=== PATIENT | male | born 1980 | race Caucasian/White ===

== ENCOUNTER 2017-02-11 02:02 | Emergency (ER) | payer OTHER ==
--- NOTE | 2017-02-11 03:08 | ED ---
Psych HPI - General Source: patient, family, RN notes reviewed Mode of arrival: ambulatory <Kenyatta Hughes - Last Filed: 02/11/17 04:26> <Samuel Osorio - Last Filed: 02/11/17 12:03> <Lance Bui - Last Filed: 02/12/17 11:18> - General Chief Complaint: Psychiatric Symptoms Stated Complaint: Mental Health Time Seen by Provider: 02/11/17 02:19 - History of Present Illness Initial Comments: Patient is a 36-year-old male chief complaint of suicidal ideation. Patient reports that he plans to overdose in order to kill himself. Patient reports he' s had multiple suicide attempts in the past history of drug and alcohol abuse states he has been clean for the past 3 years. He does report to using occasional marijuana. Patient states that he feels as if he has nothing to live for. Patient reports he is also been having a poor relationship with his daughter, and that she has recently tried to overdose. She is currently 13 years old. Patient reports that he's had severe issues with the management after his father when he is only 36. Reports is currently not taking any medications, patient states he doesn't believe in psychiatric medications. Denies any homicidal ideation. Patient denies any recent fever, chills, shortness of breath, chest pain, back pain, abdominal pain, nausea vomiting, numbness or tingling, dysuria or hematuria, constipation or diarrhea, headaches or visual changes, or any other current symptoms (Kenyatta Hughes) - Related Data Home Medications Medication Instructions Recorded Confirmed HYDROcodone/APAP 5-325MG [Hoagland 1 tab PO Q6H PRN 09/16/16 02/11/17 5-325] Lisinopril 40 mg PO DAILY 09/16/16 02/11/17 Simvastatin [Zocor] 40 mg PO HS 02/11/17 02/11/17 Allergies Allergy/AdvReac Type Severity Reaction Status Date / Time No Known Allergies Allergy Verified 02/11/17 09:23 Review of Systems ROS Other: All systems not noted in ROS Statement are negative. <Kenyatta Hughes - Last Filed: 02/11/17 04:26> ROS Other: All systems not noted in ROS Statement are negative. <Samuel Osorio - Last Filed: 02/11/17 12:03> ROS Other: All systems not noted in ROS Statement are negative. <Lance Bui - Last Filed: 02/12/17 11:18> ROS Statement: Those systems with pertinent positive or pertinent negative responses have been documented in the HPI. Past Medical History Past Medical History: Hyperlipidemia, Hypertension Additional Past Medical History / Comment(s): hiatel hernia, rosacea {pts dad had first [place] at 30, at 39 from [place] had a triple bypass before passing.pts brother had a [place] at 29} back pain History of Any Multi-Drug Resistant Organisms: None Reported Past Surgical History: Hernia Repair Past Anesthesia/Blood Transfusion Reactions: No Reported Reaction Past Psychological History: Anxiety, Depression Smoking Status: Former smoker Past Alcohol Use History: Occasional Past Drug Use History: Marijuana - Past Family History Father History Unknown: Yes Family Medical History: Coronary Artery Disease (CAD), Myocardial Infarction ([place] ) Additional Family Medical History / Comment(s): first [place] at 29, at 39 from [place] { hx of triple bypass } Brother(s) History Unknown: Yes Family Medical History: Myocardial Infarction ([place]) Additional Family Medical History / Comment(s): [place] at age 29 <Kenyatta Hughes - Last Filed: 02/11/17 04:26> General Exam Limitations: no limitations General appearance: alert, in no apparent distress Head exam: Present: atraumatic, normocephalic, normal inspection Eye exam: Present: normal appearance, PERRL, EOMI. Absent: scleral icterus, conjunctival injection, periorbital swelling ENT exam: Present: normal exam, mucous membranes moist Neck exam: Present: normal inspection. Absent: tenderness, meningismus, lymphadenopathy Respiratory exam: Present: normal lung sounds bilaterally. Absent: respiratory distress, wheezes, rales, rhonchi, stridor Cardiovascular Exam: Present: regular rate, normal rhythm, normal heart sounds. Absent: systolic murmur, diastolic murmur, rubs, gallop, clicks GI/Abdominal exam: Present: soft, normal bowel sounds. Absent: distended, tenderness, guarding, rebound, rigid Extremities exam: Present: normal inspection, full ROM, normal capillary refill. Absent: tenderness, pedal edema, joint swelling, calf tenderness Back exam: Present: normal inspection Neurological exam: Present: alert, oriented X3, CN II-XII intact Psychiatric exam: Present: depressed, suicidal ideation (Patient reports that he is suicidal thoughts and wants to overdose in order to kill himself.). Absent: normal affect, normal mood Skin exam: Present: warm, dry, intact, normal color. Absent: rash <Kenyatta Hughes - Last Filed: 02/11/17 04:26> <Samuel Osorio - Last Filed: 02/11/17 12:03> <Lance Bui - Last Filed: 02/12/17 11:18> - General Exam Comments Initial Comments: 36-year-old male. No acute distress. Patient does appear to be anxious and distraught. (Kenyatta Hughes) Course <Kenyatta Hughes - Last Filed: 02/11/17 04:26> <Samuel Osorio - Last Filed: 02/11/17 12:03> <Lance Bui - Last Filed: 02/12/17 11:18> Vital Signs 02/11/17 02/11/17 02/11/17 02:10 09:54 16:00 Temperature 97.6 F 97.8 F 97.9 F Pulse Rate 78 69 72 Respiratory 18 16 20 Rate Blood Pressure 136/91 126/85 128/56 O2 Sat by Pulse 96 97 99 Oximetry 02/11/17 02/12/17 20:44 09:00 Temperature Pulse Rate 100 80 Respiratory 16 16 Rate Blood Pressure 145/88 119/75 O2 Sat by Pulse 96 97 Oximetry - Reevaluation(s) Reevaluation #1: 02/11/17 12:03 Patient rested comfortable be throughout the night and was pending disposition. He is feeling somewhat anxious L be given appropriate medication. (Samuel Osorio) Medical Decision Making <Kenyatta Hughes - Last Filed: 02/11/17 04:26> <Samuel Osorio - Last Filed: 02/11/17 12:03> - Lab Data Result diagrams: 02/11/17 12:05 02/11/17 12:05 <Lance Bui - Last Filed: 02/12/17 11:18> - Medical Decision Making Patient 36-year-old male chief complaint suicidal ideation. Patient plans to overdose. He has a history of drug or alcohol use. He reports that he hasn't been taking other drugs. He does take pain medication occasionally on his lower back hurting. Patient reports that his history of sciatica and is actually having an MRI scheduled tomorrow. Patient is medically cleared at this time for EPS evaluation. EPS stated that he would not agree to safety contract. He continues states he has suicidal ideations. Patient will be petitioned at this time by psychiatric services. Is likely the patient may need to be transferred to another facility as our facility is currently full. Patient will be spending the night emergency room. Stating that he has some lower back pain. Patient will be given one Hoagland for his back pain, also previous request patient is severely anxious and having anxiety attack after the interview. Patient was also given 1 mg of Ativan. Patient's family is now seeing him. (Kenyatta Hughes) Patient was seen by mental health and then seen again this morning, 02/12. They did set up outpatient follow-up and to recommend discharge. Patient was reevaluated by myself, Dr. Bui. Patient has no clinical certificate on the chart. Patient denies suicidal ideation. Patient does contract for safety. Patient believes his problems are related to his anxiety and states he will also follow-up with his primary care physician regarding this. (Lance Bui) - Lab Data Lab Results 02/11/17 02/11/17 02/11/17 Range/Units 02:20 12:05 12:05 WBC 11.3 H (3.8-10.6) k/uL RBC 5.18 (4.30-5.90) m/uL Hgb 15.7 (13.0-17.5) gm/dL Hct 45.8 (39.0-53.0) % MCV 88.4 (80.0-100.0) fL MCH 30.4 (25.0-35.0) pg MCHC 34.4 (31.0-37.0) g/dL RDW 12.7 (11.5-15.5) % Plt Count 324 (150-450) k/uL Neutrophils % 74 % Lymphocytes % 18 % Monocytes % 5 % Eosinophils % 1 % Basophils % 1 % Neutrophils # 8.4 H (1.3-7.7) k/uL Lymphocytes # 2.0 (1.0-4.8) k/uL Monocytes # 0.5 (0-1.0) k/uL Eosinophils # 0.2 (0-0.7) k/uL Basophils # 0.1 (0-0.2) k/uL Sodium 143 (137-145) mmol/L Potassium 3.7 (3.5-5.1) mmol/L Chloride 106 (98-107) mmol/L Carbon Dioxide 23 (22-30) mmol/L Anion Gap 14 mmol/L BUN 10 (9-20) mg/dL Creatinine 0.63 L (0.66-1.25) mg/dL Est GFR (MDRD) Af Amer >60 (>60 ml/min/1.73 sqM) Est GFR (MDRD) Non-Af >60 (>60 ml/min/1.73 sqM) Glucose 100 H (74-99) mg/dL Calcium 9.5 (8.4-10.2) mg/dL Total Bilirubin 1.0 (0.2-1.3) mg/dL AST 21 (17-59) U/L ALT 34 (21-72) U/L Alkaline Phosphatase 58 (38-126) U/L Total Protein 7.8 (6.3-8.2) g/dL Albumin 4.7 (3.5-5.0) g/dL Urine Opiates Screen Not Detected (NotDetected) Ur Oxycodone Screen Not Detected (NotDetected) Urine Methadone Screen Not Detected (NotDetected) Ur Propoxyphene Screen Not Detected (NotDetected) Ur Barbiturates Screen Not Detected (NotDetected) U Tricyclic Antidepress Not Detected (NotDetected) Ur Phencyclidine Scrn Not Detected (NotDetected) Ur Amphetamines Screen Not Detected (NotDetected) U Methamphetamines Scrn Not Detected (NotDetected) U Benzodiazepines Scrn Not Detected (NotDetected) Urine Cocaine Screen Not Detected (NotDetected) U Marijuana (THC) Screen Detected H (NotDetected) Disposition Time of Disposition: 04:30 <Kenyatta Hughes - Last Filed: 02/11/17 04:26> <Samuel Osorio - Last Filed: 02/11/17 12:03> <Lance Bui - Last Filed: 02/12/17 11:18> Clinical Impression: Suicidal ideation, Depression Disposition: HOME SELF-CARE Condition: Stable Instructions: Depression (ED), Suicide Prevention for Adults (ED) Additional Instructions: Please follow-up with your primary care physician in the next day or 2 for recheck. Please follow up with [facility] in the next day or 2 for recheck and further care. Return for thoughts of harming yourself, worsening symptoms or any other concerns. Referrals: Kirk Obrien MD [Primary Care Provider] - 1-2 days
[2017-02-11] MEDS: LORazepam 1 MG TAB PO STA ×2 (03:49→09:43)
[2017-02-11] MEDS: HYDROcodone/APAP 5-325MG 1 EACH TAB PO STA ×2 (04:04→10:32)
[2017-02-11] MEDS ORDERED: LORazepam 1 MG TAB PO STA (11:52)
[2017-02-11 12:16] LABS: Basophils # (A) 0.1 k/uL (0-0.2); Basophils % (A) 1 %; CHCM 35.2; Eosinophils # (A) 0.2 k/uL (0-0.7); Eosinophils % (A) 1 %; HCT 45.8 % (39.0-53.0); HDW 2.31; HGB 15.7 gm/dL (13.0-17.5); Luc # (Auto) 0.17; Luc % (Auto) 2; Lymphocytes % (A) 18 %; MCH 30.4 pg (25.0-35.0); MCHC 34.4 g/dL (31.0-37.0); MCV 88.4 fL (80.0-100.0); Mean Platelet Volume 6.4; Monocytes # (A) 0.5 k/uL (0-1.0); Monocytes % (A) 5 %; Neutrophils # (A) 8.4 k/uL (1.3-7.7); Neutrophils % (A) 74 %; RBC 5.18 m/uL (4.30-5.90); RDW 12.7 % (11.5-15.5); WBC 11.3 k/uL (3.8-10.6); WBC (Perox) 11.84
[2017-02-11 12:26] LABS: ALT 34 U/L (21-72); AST 21 U/L (17-59); Alkaline Phosphatase 58 U/L (38-126); Anion Gap 14 mmol/L; Blood Urea Nitrogen 10 mg/dL (9-20); Calcium 9.5 mg/dL (8.4-10.2); Carbon Dioxide 23 mmol/L (22-30); Chloride 106 mmol/L (98-107); Glucose 100 mg/dL (74-99); Non-African American GFR(MDRD) >60 (>60 ml/min/1.73 sqM); Potassium 3.7 mmol/L (3.5-5.1); Sodium 143 mmol/L (137-145); Total Protein 7.8 g/dL (6.3-8.2)
[2017-02-11] MEDS ORDERED: HYDROcodone/APAP 5-325MG 1 EACH TAB PO STA (18:24)
[2017-02-11 20:45] VITALS: RESP 16
[2017-02-12] MEDS ORDERED: LORazepam 1 MG TAB PO STA (00:56)
[2017-02-12] MEDS ORDERED: HYDROcodone/APAP 5-325MG 1 EACH TAB PO STA ×2 (00:56→09:33)
[2017-02-12] MEDS ORDERED: HYDROcodone/APAP 5-325MG 1 EACH TAB PO PRN (09:32)
[2017-02-12 11:28] VITALS: BP 131/77; PULSE 74; TEMP 98.2
== END 2017-02-12 11:28 | disposition home or self-care (01) ==
LOC: EC 02:02
DX: F32.9 Major depressive disorder, single episode, unspecified (principal); R45.851 Suicidal ideations; I10 Essential (primary) hypertension; F41.9 Anxiety disorder, unspecified; Z87.891 Personal history of nicotine dependence; Z79.899 Other long term (current) drug therapy
CPT/HCPCS: 36415; 80053; 80306; 82075; 85025; 99284

== ENCOUNTER → 2017-02-12 | Outpatient (CLI) | payer OTHER ==
--- NOTE | 2017-02-12 21:44 | MR ---
EXAMINATION TYPE: MR lumbar spine wo con DATE OF EXAM: 02/12/2017 5:17 PM COMPARISON: NONE HISTORY: 36-year-old male with low back pain, right lower extremity radiculopathy x 7 years, no surge ry TECHNIQUE: Multiplanar, multisequence images of the lumbar spine were acquired. FINDINGS: Vertebral body heights are preserved. There are trace grade 1 retrolistheses at L3-L4 and L4-L5. 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 There is prominent red marrow without amrik bone marrow replacement. Findings could be secondary to a nemia, obesity, smoking, or chronic disease. Clinically correlate. Conus medullaris is normal. Moderate degenerative disc disease with moderate disc height loss particularly in the mid to lower narendra mbar spine with diffuse disc bulges. Additional ligamentum flavum thickening and facet degenerative change. At T12-L1, no spinal canal and neuroforaminal stenosis. At L1-L2, no spinal canal or neuroforaminal stenosis. At L2-L3, no spinal canal or neuroforaminal stenosis. At L3-L4, there is mild diffuse disc bulge and mild facet degenerative change. There is minimal infer ior neural foraminal narrowing on the right and mild left-sided neuroforaminal stenosis. At L4-L5, there is diffuse disc bulge with ligamentum flavum thickening and facet arthropathy. In add ition, there is a right paracentral disc extrusion with inferior migration of disc material and likel y a 1.7 cm craniocaudal by 0.8 cm wide edematous, sequestered disc fragment along the right paramedia n posterior aspect of the L5 vertebral body. This likely impinges the traversing right L5 nerve root. Mild attenuation of the thecal sac without significant spinal canal stenosis. There is mild right gr eater than left neuroforaminal stenosis. At L5-S1, there is bulging disc and facet degenerative change. Changes result in moderate right neuro foraminal stenosis without spinal canal stenosis. No prevertebral or paravertebral soft tissue abnormality seen. IMPRESSION: 1. Moderate degenerative disc disease mid to lower lumbar spine with corresponding ligamentum flavum thickening and facet arthropathy. 2. There appears to be a right paracentral disc extrusion at L4-L5 with inferior migration of disc ma terial and a 1.7 x 0.8 cm sequestered disc fragment along the posterior aspect of the L5 vertebral maricarmen dy. This seems to impinge the traversing right L5 nerve root. 3. Moderate right neuroforaminal stenosis at L5-S1, mild right greater than left neuroforaminal steno sis at L4-L5, and mild left neuroforaminal stenosis at L3-L4. 4. No amrik canal compromise.
== END | disposition home or self-care (01) ==
LOC: RADMRIMAIN 16:42
PROVIDERS: ATTEND Family Medicine
DX: M99.73 Connective tissue and disc stenosis of intervertebral foramina of lumbar region (principal); M99.74 Connective tissue and disc stenosis of intervertebral foramina of sacral region; M51.27 Other intervertebral disc displacement, lumbosacral region; M51.36 Other intervertebral disc degeneration, lumbar region; M46.96 Unspecified inflammatory spondylopathy, lumbar region; M24.28 Disorder of ligament, vertebrae
CPT/HCPCS: 72148

== ENCOUNTER 2017-07-17 06:32 | Day surgery (SDC) | payer OTHER ==
[2017-07-16 09:18] VITALS: BMI 28.6
[~2017-07-17 06:32] MED LIST: DEXAMETHASONE SOD PHOSPHATE 10 MG/ML 1 ML VIAL IV ONE; HEPARIN SODIUM,PORCINE 5,000 UNIT/ML 1 ML VIAL SQ ONE; MIDAZOLAM 2 MG/2 ML VIAL IV PRN; ONDANSETRON 4 MG/2 ML VIAL IVP ONE; SCOPOLAMINE 1.5MG/72HR PATCH TRANSDERM ONE; ceFAZolin 2 GM in SODIUM CHLORIDE 0.9% 100 ML IVPB ONE
[2017-07-17] MEDS: LACTATED RINGERS 1,000 ML IV SCH ×2 (07:11→07:15)
[2017-07-17] MEDS: LIDOCAINE 1% 20 ML VIAL (10MG/ML) FOR IV START INTRADERMA PRN ×2 (07:12→07:13)
[2017-07-17] MEDS ORDERED: HYDROmorphone (PF) 1 MG/ML ONE (07:52)
[2017-07-17] MEDS ORDERED: fentaNYL (PF) 50 MCG/ML 2 ML AMP ONE (07:52)
[2017-07-17] MEDS ORDERED: PHENYLEPHRINE-0.9% NACL SYG 1 MG/10 ML SYRINGE ONE (07:52)
[2017-07-17] MEDS ORDERED: MIDAZOLAM 2 MG/2 ML VIAL ONE (07:52)
[2017-07-17] MEDS ORDERED: NEOSTIGMINE 1 MG/ML 10 ML VIAL ONE (07:52)
[2017-07-17] MEDS ORDERED: SUCCINYLCHOLINE CHLORIDE 100 MG/5 ML SYR IV ONE (07:52)
[2017-07-17] MEDS ORDERED: GLYCOPYRROLATE 0.2 MG/ML 2 ML VIAL ONE (07:52)
[2017-07-17] MEDS ORDERED: ROCURONIUM BROMIDE 10 MG/ML 10 ML VIAL IV ONE (07:52)
[2017-07-17] MEDS ORDERED: PROPOFOL 10 MG/ML 20 ML VIAL IV ONE (07:52)
[2017-07-17] MEDS ORDERED: LIDOCAINE 1% INJ 10MG/ML (20 ML MDV) ONE (07:52)
--- NOTE | 2017-07-17 07:52 | P.GSHP ---
History of Present Illness H&P Date: 07/17/17 Chief Complaint: Right inguinal hernia The subcu 6-year-old male referred from Dr. Obrien. Patient complaints of right inguinal pain. He was seen Damion found have a reducible right inguinal hernia. Evidence today for laparoscopic robotic system repair. Past Medical History Past Medical History: Hypertension Additional Past Medical History / Comment(s): hiatel hernia, rosacea, CHRONIC BACK PAIN History of Any Multi-Drug Resistant Organisms: None Reported Past Surgical History: Hernia Repair Additional Past Surgical History / Comment(s): HIATAL HERNIA SX Past Anesthesia/Blood Transfusion Reactions: No Reported Reaction Smoking Status: Current some day smoker - Past Family History Father History Unknown: Yes Family Medical History: Coronary Artery Disease (CAD), Deep Vein Thrombosis (DVT ), Myocardial Infarction ([place]) Additional Family Medical History / Comment(s): first [place] at 29, at 39 from [place] { hx of triple bypass } Brother(s) History Unknown: Yes Family Medical History: Myocardial Infarction ([place]) Additional Family Medical History / Comment(s): [place] at age 29 Medications and Allergies Home Medications Medication Instructions Recorded Confirmed Type Lisinopril 40 mg PO DAILY 09/16/16 07/17/17 History metroNIDAZOLE 0.75% CREAM 1 applic TOPICAL DAILY 07/16/17 07/17/17 History [Metrocream] Allergies Allergy/AdvReac Type Severity Reaction Status Date / Time No Known Allergies Allergy Verified 07/17/17 06:52 Surgical - Exam Vital Signs Temp Pulse Resp BP Pulse Ox 97.6 F 88 18 127/78 97 07/17/17 06:49 07/17/17 06:49 07/17/17 06:49 07/17/17 06:49 07/17/17 06:49 - General well developed, no distress - Eyes PERRL - ENT normal pinna - Neck no masses - Respiratory normal expansion - Cardiovascular Rhythm: regular - Abdomen Abdomen: soft, non tender Assessment and Plan Plan: Right inguinal hernia. We'll perform laparoscopic robotic-assisted repair.
[2017-07-17] MEDS ORDERED: BUPIVACAINE-EPI 0.5%-1:200,000 10 ML VIAL SQ ONE (08:17)
--- NOTE | 2017-07-17 08:50 | P.OP ---
Date of Procedure: 07/17/17 Preoperative Diagnosis: Right inguinal hernia Postoperative Diagnosis: Right inguinal hernia Procedure(s) Performed: Operative Report robotic-assisted repair of right inguinal hernia Anesthesia: ROSSY Surgeon: Juan J Watkins Estimated Blood Loss (ml): 5 Pathology: none sent Condition: stable Disposition: PACU Description of Procedure: he patient's placed on the operating table in the supine position. The patient received general anesthesia. The patient's abdomen was prepped and draped in usual sterile fashion. The skin was anesthetized 1% local Xylocaine at the incision sites. Using an 11 blade a skin incision was made at the umbilicus. The fascia was grasped with a [place] and then the peritoneal cavity was entered with the Veress needle. Position of the Veress needle was confirmed with a positive drop test. After adequate insufflation a 5 mm trocar was placed into the peritoneal cavity. The Laparoscope was placed the peritoneal cavity. And a robotic 8 mm trocar was placed in the right lateral position and then another 8 mm robotic trochars placed in the left lateral position. The original 5 mm trocar was exchanged for a 12 mm trocar. The patient was placed in reverse Trendelenburg and then the patient was docked to the robot. Next the peritoneum over top of the hernia was incised and then using blunt and sharp dissection and electrocautery the hernia sac was dissected free from the floor of the inguinal canal. The hernia sac was completely reduced into the peritoneal cavity. And then using the Pro shotblast equipment operator mesh the hernia was repaired. The peritoneum was then sutured with 20V lock suture. The patient was then undocked the robot. The needle was withdrawn from the peritoneal cavity. The umbilical trocar site was closed with 0 Ethibond suture. The skin was closed interrupted 3-0 Monocryl suture. Dermabond dressing was applied. Patient was sent to recovery in stable condition.
[2017-07-17 09:15] VITALS: TEMP 97.4
[2017-07-17] MEDS: HYDROmorphone 1 MG/ML 1 ML SYRINGE IVP PRN ×2 (09:23→09:31)
[2017-07-17] MEDS ORDERED: ONDANSETRON 4 MG/2 ML VIAL IVP ONE (09:24)
[2017-07-17 09:54] VITALS: RESP 16
[2017-07-17] MEDS ORDERED: HYDROcodone/APAP 7.5-325MG 1 EACH TAB PO ONE (10:20)
[2017-07-17 11:00] VITALS: BP 122/78; PULSE 101
== END 2017-07-17 11:06 | disposition home or self-care (01) ==
LOC: OR 06:32
PROVIDERS: ATTEND Surgery
DX: K40.90 Unilateral inguinal hernia, without obstruction or gangrene, not specified as recurrent (principal); I10 Essential (primary) hypertension; Z82.49 Family history of ischemic heart disease and other diseases of the circulatory system; F17.200 Nicotine dependence, unspecified, uncomplicated; Z79.899 Other long term (current) drug therapy; E78.5 Hyperlipidemia, unspecified; M51.26 Other intervertebral disc displacement, lumbar region
CPT/HCPCS: 49650; C1781; J2250; J1644; J1100; J2710; J0690; J2405; J2001; J3010; J1170; J2370; J0330; J2704

== ENCOUNTER 2017-11-04 01:08 | Emergency (ER) | payer OTHER ==
[2017-11-04 01:14] VITALS: RESP 18
--- NOTE | 2017-11-04 01:45 | ED ---
Psych HPI - General Chief Complaint: Psychiatric Symptoms Stated Complaint: Mental Health Time Seen by Provider: 11/04/17 01:14 Source: patient, police, RN notes reviewed Mode of arrival: ambulatory - History of Present Illness Initial Comments: 36-year-old male presents emergency Department chief complaint of depression, suicidal thoughts. Patient states that he believes his mother called the police who brought him here. Patient states she does struggle with depression he denies plan to harm himself and this time. He does have a history of alcohol and drug abuse. Patient does admit that he occasionally drinks has not drinking alcohol today. Denies any physical complaints denies chest pain, shortness breath, fever, chills, nausea vomiting diarrhea constipation. Patient does not take any current psychiatric medications. - Related Data Home Medications Medication Instructions Recorded Confirmed Lisinopril 40 mg PO DAILY 09/16/16 11/04/17 Previous Rx's Medication Instructions Recorded HYDROcodone/APAP 7.5-325MG [[place] 1 each PO Q4H PRN #60 tab 07/17/17 7.5] Allergies Allergy/AdvReac Type Severity Reaction Status Date / Time No Known Allergies Allergy Verified 11/04/17 01:13 Review of Systems ROS Statement: Those systems with pertinent positive or pertinent negative responses have been documented in the HPI. ROS Other: All systems not noted in ROS Statement are negative. Past Medical History Past Medical History: Hyperlipidemia, Hypertension Additional Past Medical History / Comment(s): hiatel hernia, rosacea {pts dad had first [place] at 29, at 39 from [place] had a triple bypass before passing.pts brother had a [place] at 29} back pain History of Any Multi-Drug Resistant Organisms: None Reported Past Surgical History: Hernia Repair Past Anesthesia/Blood Transfusion Reactions: No Reported Reaction Past Psychological History: Anxiety, Depression Smoking Status: Current some day smoker Past Alcohol Use History: None Reported Past Drug Use History: Marijuana - Past Family History Father History Unknown: Yes Family Medical History: Coronary Artery Disease (CAD), Deep Vein Thrombosis (DVT ), Myocardial Infarction ([place]) Additional Family Medical History / Comment(s): first [place] at 30, at 39 from [place] { hx of triple bypass } Brother(s) History Unknown: Yes Family Medical History: Myocardial Infarction ([place]) Additional Family Medical History / Comment(s): [place] at age 29 General Exam Limitations: no limitations General appearance: alert, in no apparent distress Head exam: Present: atraumatic, normocephalic, normal inspection Eye exam: Present: normal appearance, PERRL, EOMI. Absent: scleral icterus, conjunctival injection, periorbital swelling ENT exam: Present: normal exam, normal oropharynx, mucous membranes moist, TM's normal bilaterally, normal external ear exam Neck exam: Present: normal inspection, full ROM. Absent: tenderness, meningismus, lymphadenopathy Respiratory exam: Present: normal lung sounds bilaterally. Absent: respiratory distress, wheezes, rales, rhonchi, stridor Cardiovascular Exam: Present: regular rate, normal rhythm, normal heart sounds. Absent: systolic murmur, diastolic murmur, rubs, gallop, clicks GI/Abdominal exam: Present: soft, normal bowel sounds. Absent: distended, tenderness, guarding, rebound, rigid Neurological exam: Present: alert, oriented X3, CN II-XII intact Psychiatric exam: Present: depressed, flat affect Skin exam: Present: warm, dry, intact, normal color. Absent: rash Course Vital Signs 11/04/17 01:09 Temperature 97 F L Pulse Rate 94 Respiratory 18 Rate Blood Pressure 179/106 O2 Sat by Pulse 97 Oximetry Medical Decision Making - Medical Decision Making 36-year-old male present emergency department for psychiatric evaluation. Patient was evaluated by EPS case discussed with psychiatrist patient will be discharged at this time return parameters were discussed. Disposition Clinical Impression: Depression Disposition: HOME SELF-CARE Condition: Stable Instructions: Depression (ED) Additional Instructions: Please return to the Emergency Department if symptoms worsen or any other concerns. Referrals: Kirk Obrien MD [Primary Care Provider] - 1-2 days Time of Disposition: 03:56
[2017-11-04 04:10] VITALS: BP 151/82; PULSE 98; TEMP 97.8
== END 2017-11-04 04:10 | disposition home or self-care (01) ==
LOC: EC 01:08 → SUPCPDRO 01:08 → EC 04:10
DX: F32.9 Major depressive disorder, single episode, unspecified (principal); R45.851 Suicidal ideations; I10 Essential (primary) hypertension; F17.200 Nicotine dependence, unspecified, uncomplicated; Z79.899 Other long term (current) drug therapy
CPT/HCPCS: 82075; 99284

== ENCOUNTER → 2019-05-29 | Outpatient (CLI) | payer OTHER ==
--- NOTE | 2019-05-29 10:13 | US ---
EXAMINATION TYPE: US abdomen complete DATE OF EXAM: 05/29/2019 COMPARISON: NONE CLINICAL HISTORY: R10.9 Abd pain. Abdomen pain EXAM MEASUREMENTS: Liver Length: 14.9 cm Gallbladder Wall: 0.2 cm CBD: 0.3 cm CHD: 0.3 cm Spleen: 9.6 cm Right Kidney: 11.5 x 5.4 x 5.8 cm Left Kidney: 11.0 x 5.4 x 6.2 cm Pancreas: tail not visualized due to overlying bowel gas Liver: Appears slightly coarse. No discrete mass is seen. Gallbladder: wnl Evidence for sonographic Eaton's sign: neg CBD: wnl CHD: wnl Spleen: wnl Right Kidney: wnl Left Kidney: wnl Upper IVC: wnl Abd Aorta: Mid portion obscured by overlying bowel gas The liver is slightly coarsened echotexture. The intrahepatic portion of the IVC and proximal abdomi nal aorta are within normal limits. There is no evidence of cholelithiasis. Common bile duct is unr emarkable. The visualized portions of the pancreas are homogenous. The spleen is unremarkable. Kid neys are symmetric and free of hydronephrosis. No renal lesions are seen. IMPRESSION: Slightly coarsened echotexture of the hepatic parenchyma could relate to mild degree hepa tic steatosis or other hepatocellular disease. Correlate with liver function tests. No sonographic ev idence of cholelithiasis nor acute cholecystitis.
== END | disposition home or self-care (01) ==
LOC: RADUSWWP 09:25
PROVIDERS: ATTEND Family Medicine
DX: R10.9 Unspecified abdominal pain (principal)
CPT/HCPCS: 76700

== ENCOUNTER 2019-07-23 10:13 | Day surgery (SDC) | payer OTHER ==
[2019-07-21 11:07] VITALS: BMI 29.3
[~2019-07-23 10:13] MED LIST changes: -DEXAMETHASONE SOD PHOSPHATE 10 MG/ML 1 ML VIAL IV ONE; -HEPARIN SODIUM,PORCINE 5,000 UNIT/ML 1 ML VIAL SQ ONE; +LACTATED RINGERS 1,000 ML IV SCH; +LIDOCAINE 1% 20 ML VIAL (10MG/ML) FOR IV START INTRADERMA PRN; -MIDAZOLAM 2 MG/2 ML VIAL IV PRN; -ONDANSETRON 4 MG/2 ML VIAL IVP ONE; -SCOPOLAMINE 1.5MG/72HR PATCH TRANSDERM ONE; -ceFAZolin 2 GM in SODIUM CHLORIDE 0.9% 100 ML IVPB ONE
[2019-07-23 11:01] VITALS: RESP 16; TEMP 98.1
[2019-07-23] MEDS ORDERED: MIDAZOLAM 2 MG/2 ML VIAL ONE (11:27)
[2019-07-23] MEDS ORDERED: PROPOFOL 10 MG/ML 20 ML VIAL IV ONE (11:27)
[2019-07-23] MEDS ORDERED: LIDOCAINE 1% INJ 10MG/ML (20 ML MDV) ONE (11:27)
--- NOTE | 2019-07-23 11:38 | P.PCN ---
Date of Procedure: 07/23/19 Procedure(s) Performed: BRIEF HISTORY: Patient is a 38-year-old, pleasant, white male, scheduled for an upper endoscopy as a part of evaluation of long-standing history of GERD and atypical chest pain. His been maintained on omeprazole 20 mg twice daily despite which continues to have atypical chest pain almost daily basis. Pain is constant and is worse with certain foods.. PROCEDURE PERFORMED: Esophagogastroduodenoscopy with biopsy. y PREOPERATIVE DIAGNOSIS: Long-standing history of GERD/atypical chest pain. IV sedation per anesthesia. PROCEDURE: After informed consent was obtained, the patient was brought into the endoscopy unit. IV sedation was administered by Anesthesia under continuous monitoring. Initially the Olympus GIF-140 video endoscope was inserted into the mouth. Esophagus intubated without any difficulty. It was gradually advanced into the stomach and duodenum and carefully examined. The bulb and the second part of the duodenum appeared normal. The scope at this time was withdrawn to the stomach, adequately insufflated with air, and upon careful examination, mucosa of the antrum had gastritis and biopsies were done from this area. The, body, cardia and the fundus appeared normal. The scope was then withdrawn into the esophagus. The GE junction was located at 40 cm from the incisors. There were 2 separate erosions at the GE junction consistent with LA grade B reflux esophagitis. Biopsies were done from the distal esophagus and the patient tolerated the procedure well. IMPRESSION: 1. Mild antral gastritis. 2. 2 superficial erosions at the GE junction consistent with LA grade B reflux esophagitis. RECOMMENDATIONS: The findings of this examination were discussed with the patient as well as his family. He was advised to follow with the biopsy results. He'll be started on a Carafate 1 g 4 times daily and will continue with omeprazole 20 mg twice daily. He will be seen in office in 4 weeks.
[2019-07-23 12:42] VITALS: BP 110/75; PULSE 60
== END 2019-07-23 13:00 | disposition home or self-care (01) ==
LOC: ORWHC2ENDO 10:13
PROVIDERS: ATTEND Internal Medicine Gastroenterology
DX: K29.50 Unspecified chronic gastritis without bleeding (principal); K21.0 Gastro-esophageal reflux disease with esophagitis; E78.5 Hyperlipidemia, unspecified; I10 Essential (primary) hypertension; Z82.49 Family history of ischemic heart disease and other diseases of the circulatory system; Z87.891 Personal history of nicotine dependence; Z79.899 Other long term (current) drug therapy
CPT/HCPCS: 43239; J2250; J2001; J2704; 88305

== ENCOUNTER → 2023-05-30 | Outpatient (CLI) | payer OTHER ==
--- NOTE | 2023-05-30 20:41 | CT ---
EXAMINATION TYPE: CT abdomen pelvis w con DATE OF EXAM: 05/30/2023 COMPARISON: None INDICATION: right flank pain, frequent urination hx of hiatal hernia DLP: 1328.9 mGycm, Automated exposure control for dose reduction was used. CONTRAST: 100 mL of Isovue 300. Study performed with Oral Contrast TECHNIQUE: Axial images were obtained from above the diaphragm to the pubic rami in the axial plane a t 5 mm thick sections. Reconstructed images are reviewed on the computer in the coronal plane. FINDINGS: Limited CT sections are obtained the lung bases. The lung bases are clear. CT ABDOMEN: There is a small hiatal hernia with reflux into the distal esophagus. There may have been a prior Maciej fundoplication or there is additional hernia of stomach into the distal thorax contai lily contrast. Liver: Normal Spleen: Normal Pancreas: Normal Adrenal glands: The adrenal glands are normal. Gallbladder: Normal Kidneys: No masses are evident. No hydronephrosis is present. No cysts are present. Delayed images were obtained through the kidneys, which remain unremarkable. Aorta: Normal Inferior vena cava: Normal. CT PELVIS: Contrast-filled loops of bowel appear unremarkable. There are loops of bowel lacking oral contrast li miting their evaluation. Mild fecal debris is to the colon. Appendix: Not visualized. No dilated tubular structure or inflammatory changes are evident. Urinary bladder: Normal. Genitourinary structures: Prostate is prominent Osseous structures: No suspicious lytic or sclerotic lesions. IMPRESSIONS: 1. Hiatal hernia. A second herniation of stomach around the distal esophagus may be present. This co ntains contrast. Correlate for prior Maciej fundoplication. 2. No hydronephrosis or obstructing renal stones identified.
== END | disposition home or self-care (01) ==
LOC: RADCTMAIN 09:28
PROVIDERS: ATTEND Family Medicine
DX: K44.9 Diaphragmatic hernia without obstruction or gangrene (principal); R35.0 Frequency of micturition
CPT/HCPCS: 74177; Q9967

== ENCOUNTER → 2023-06-12 | Outpatient (CLI) | payer OTHER ==
--- NOTE | 2023-06-13 10:12 | CT ---
EXAMINATION TYPE: CT chest wo con DATE OF EXAM: 06/12/2023 COMPARISON: None HISTORY: left sided chest pain CT DLP: 378.4 mGycm. Automated Exposure Control for Dose Reduction was Utilized. TECHNIQUE: CT scan of the thorax is performed without IV contrast. FINDINGS: LUNGS: The lungs are grossly clear, there is no concerning parenchymal mass or nodule identified. T here is no pleural effusion or pneumothorax seen. The tracheobronchial tree is patent. MEDIASTINUM: Lack of IV contrast is noted to limit evaluation for mediastinal and especially hilar ad enopathy. There are no definitive greater than 1 cm hilar or mediastinal lymph nodes. No cardiomega ly or pericardial effusion is seen. Mild coronary artery calcification. Aorta normal caliber. Mild at herosclerotic disease. OTHER: Large hiatal hernia with thickening of the distal esophagus wall correlate for reflux esophagi tis.. Hypertrophic and degenerative changes of spine IMPRESSION: 1. Large hiatal hernia. 2. No acute intrathoracic process.
== END | disposition home or self-care (01) ==
LOC: RADCTMAIN 15:03
PROVIDERS: ATTEND Family Medicine
DX: K44.9 Diaphragmatic hernia without obstruction or gangrene (principal); R07.89 Other chest pain
CPT/HCPCS: 71250

== ENCOUNTER → 2023-07-16 | Outpatient (CLI) | payer OTHER ==
--- NOTE | 2023-07-16 15:51 | US ---
EXAMINATION TYPE: US scrotum with doppler. Grayscale and color Doppler Duplex imaging performed of shellie veliz scrotum. DATE OF EXAM: 07/16/2023 COMPARISON: NONE CLINICAL INDICATION: Male, 42 years old with history of N50.812 LEFT TESTICULAR PAIN; Left teste pain x 2months EXAM MEASUREMENTS: TESTICLES: Right Testicle: 4.1 x 1.7 x 3.0 cm Left Testicle: 3.7 x 1.4 x 2.1 cm EPIDIDYMIS HEAD: Right Epididymis: 1.1 x 0.6 x 0.9 cm Left Epididymis: 0.9 x 1.4 x 0.9 cm Doppler performed to assess for testicular vascularity; good bilateral color flow and waveforms are s een. There is no evidence of testicular torsion. Presence of hydroceles: No Presence of varicoceles: Yes - left IMPRESSION: 1. No intratesticular mass or evidence for testicular torsion. 2. Left-sided varicocele.
== END | disposition home or self-care (01) ==
LOC: RADUSWWP 15:21
PROVIDERS: ATTEND Family Medicine
DX: N50.812 Left testicular pain (principal); I86.1 Scrotal varices
CPT/HCPCS: 76870; 93975